=== PATIENT | male | born 1955 | race American Indian/Alaskan Native ===

== ENCOUNTER 2019-03-10 16:59 | Emergency (ER) | payer SELFPAY ==
[2019-03-10 17:21] VITALS: BP 176/86
--- NOTE | 2019-03-10 17:24 | Emergency Department Report ---
Chief Complaint: Extremity Injury, Upper Stated Complaint: FISHING LURE STUCK IN ARM Time Seen by Provider: 03/10/19 17:18 - HPI History of Present Illness: This is a 63 y.o. M. that presents to the ER with fish hook in right triceps. Patient states he caught a fish and he slung the hook out and caught his triceps. Current smoker, 8-9 cigarettes pd. Tetanus 4 yrs ago. - Exam Vital Signs: Vital Signs 03/10/19 17:19 Temperature 98.7 F Pulse Rate 76 Respiratory 18 Rate Blood Pressure 176/86 O2 Sat by Pulse 96 Oximetry MSE screening note: Focused history and physical exam performed. Due to findings the following was ordered: This initial assessment/diagnostic orders/clinical plan/treatment(s) is/are subject to change based on patient's health status, clinical progression and re- assessment by fellow clinical providers in the ED. Further treatment and workup at subsequent clinical providers discretion. Patient/guardians urged not to elope from the ED as their condition may be serious if not clinically assessed and managed. Initial orders include: ED Disposition for MSE Condition: Stable
--- NOTE | 2019-03-10 18:01 | Emergency Department Report ---
HPI - General Chief Complaint: Extremity Injury, Upper Time Seen by Provider: 03/10/19 17:18 - HPI HPI: he is a 63-year-old male who presents to ED today complaining of facial stopped to his right upper arm. Patient states earlier today around 4 PM he was fishing when he accidentally wanted to discuss up on his upper arm. Patient states he was unable to take it see presented to the ED to have it removed. ED Past Medical Hx - Past Medical History Previous Medical History?: No - Social History Smoking Status: Current Every Day Smoker Substance Use Type: None - Medications Home Medications: Home Medications Medication Instructions Recorded Confirmed Last Taken Type Ciprofloxacin HCl [Ciprofloxacin 500 mg PO Q12HR #10 tab 03/10/19 Unknown Rx TAB] Ibuprofen [Motrin] 800 mg PO Q8HR #30 tablet 03/10/19 Unknown Rx cephALEXin [Keflex] 500 mg PO Q12HR #10 cap 03/10/19 Unknown Rx ED Review of Systems ROS: Stated complaint: FISHING LURE STUCK IN ARM Other details as noted in HPI Comment: All other systems reviewed and negative Physical Exam - Physical Exam Vital Signs: Vital Signs 03/10/19 17:19 Temperature 98.7 F Pulse Rate 76 Respiratory 18 Rate Blood Pressure 176/86 O2 Sat by Pulse 96 Oximetry Physical Exam: GENERAL: Alert and oriented x3, no apparent distress, Normal Gait, atraumatic. HEAD: Head is normocephalic and a-traumatic. EXTREMITIES/MUSCULOSKELETAL: No cyanosis, clubbing, rash, lesions or edema. Full ROM bilaterally. UE/LE Pulses 2+ bilaterally. LE and UE 5+ strength bilaterally, fish hook bait attached to the upper tricep muscle., No bleeding, one hook is partially in the dermis NEUROLOGIC: The patient is cooperative with no focal neurologic deficits. Cranial nerves II through XII are grossly intact. Normal speech. Normal sensation in bilateral upper and lower extremities, SKIN: Warm and dry, No lesions, No ulceration or induration present. ED Course Vital Signs 03/10/19 17:19 Temperature 98.7 F Pulse Rate 76 Respiratory 18 Rate Blood Pressure 176/86 O2 Sat by Pulse 96 Oximetry ED Medical Decision Making - Medical Decision Making 63-year-old male presents with fishhook stuck to his upper arm. 2 mL of lidocaine was administered to the area. 11 blade was used successfully reduce the fishhook. Patient tolerated procedure well , minimal bleeding, bleeding controlled. Patient sent on antibiotics. Patient states his tetanus was up-to-date so he did not need a tetanus booster today. Vital signs are normal patient is in no acute distress Critical care attestation.: If time is entered above; I have spent that time in minutes in the direct care of this critically ill patient, excluding procedure time. ED Disposition Clinical Impression: Caden patel in forearm Disposition: [id number] TO HOME OR SELFCARE Is pt being admited?: No Does the pt Need Aspirin: No Condition: Stable Instructions: Abrasion (ED) Additional Instructions: Make sure to follow up with the primary care physician as discussed. Take all your medications as you've been prescribed. If you have any worsening symptoms or develop new symptoms please return to ED immediately. Prescriptions: Ciprofloxacin HCl [Ciprofloxacin TAB] 500 mg PO Q12HR #10 tab cephALEXin [Keflex] 500 mg PO Q12HR #10 cap Ibuprofen [Motrin] 800 mg PO Q8HR #30 tablet Referrals: [facility] [Outside] - 3-5 Days [facility] [Outside] - 3-5 Days Forms: Work/School Release Form(ED) Time of Disposition: 18:37
== END 2019-03-10 18:50 | disposition home or self-care (01) ==
LOC: ED 16:59
DX: S50.851A Superficial foreign body of right forearm, initial encounter (principal); F17.200 Nicotine dependence, unspecified, uncomplicated; W45.8XXA Other foreign body or object entering through skin, initial encounter; Y93.89 Activity, other specified; Y92.89 Other specified places as the place of occurrence of the external cause; Y99.8 Other external cause status